=== PATIENT | female | born 1945 | race Caucasian/White ===

== ENCOUNTER → 2020-03-18 | Outpatient (CLI) | payer MEDICARE ==
--- NOTE | 2020-03-18 15:48 | RAD ---
EXAM: Dual energy x-ray absorptiometry (DEXA). HISTORY: Postmenopausal female presents for osteoporosis screening. COMPARISON: None. TECHNIQUE: Dual energy x-ray absorptiometry of the lumbar spine and right hip was performed. Calculation of bone mineral density based on standard deviations above or below the expected young adult normal value (T-score) was completed. FINDINGS: The average bone mineral density in the 1st through 4th lumbar vertebrae is 1.461 g/cmxcm, corresponding with a T-score of 2.3. The average total bone mineral density in the right hip is 0.896 g/cmxcm, corresponding with a T-score of -0.5. IMPRESSION: Normal bone mineral density. Note: Definitions established by the [employer]: 1. Normal: T-score is -1.0 or above. 2. Osteopenia: T-score is between -1.0 and -2.5 . 3. Osteoporosis: T-score is -2.5 or below. Electronically signed by: Shena Maxwell MD (03/18/2020 3:45 PM) [id number]
== END | disposition home or self-care (01) ==
LOC: DXRAD 15:16
PROVIDERS: ATTEND Specialist
DX: Z13.820 Encounter for screening for osteoporosis (principal); M85.88 Other specified disorders of bone density and structure, other site
CPT/HCPCS: 77080